=== PATIENT | female | born 1970 | race Asian ===

== ENCOUNTER → 2018-07-31 08:36 | Outpatient (CLI) | payer BC, SELFPAY ==
--- NOTE | 2018-07-31 08:38 | VDLE_ITS ---
Reason For Study: LEG SWELLING RIGHT LEFT CFV is compressible, spontaneous, phasic, GSV is normal. competent and demonstrates normal CFV and SFJ are compressible with vein wall augmentation. thickening, patent, spontaneous, phasic and Procedure competent with augmentation. Exam performed in department. FV is compressible, spontaneous, phasic, A preliminary report was called and/or faxed competent and demonstrates normal to Linda Guy. augmentation. POP V is compressible, spontaneous, phasic, competent and demonstrates normal augmentation. T/P Trunk is compressible. PTV is compressible. LT PerV is compressible. Interpretation Summary The left common femoral vein and the left sapheno-femoral junction demonstrate chronic vein wall thickening, but are otherwise patent and compressible. The remainder of the left lower extremity deep venous system is patent and compressible. Valvular competence appears intact within the proximal deep venous system on the left . The left greater saphenous vein appears patent and compressible segmentally. Ordering Physician: NIKI Hall Referring Physician: NIKI Hall Performed By: Kirsten Rico RVT
== END ==
PROVIDERS: Family Provider Nurse Practitioner Family; PCP Nurse Practitioner Family; Referring Provider Nurse Practitioner Family; Visit Provider Nurse Practitioner Family
DX: M79.89 Other specified soft tissue disorders (principal)
CPT/HCPCS: 93971

== ENCOUNTER 2023-11-18 09:05 | Emergency (ER) | payer BC, SELFPAY ==
[2023-11-18 09:05] VITALS: BP 154/89; PULSE 74; PULSE 78; RESP 16; RESP 21; TEMP 35.6; O2SAT 96; O2SAT 99; BMI 24.2
--- NOTE | 2023-11-18 09:19 | EKG12_ITS ---
Test Reason : CP Blood Pressure : / mmHG Vent. Rate : 070 BPM Atrial Rate : 070 BPM P-R Int : 206 ms QRS Dur : 086 ms QT Int : 442 ms P-R-T Axes : 032 034 032 degrees QTc Int : 477 ms Normal sinus rhythm Normal ECG Confirmed by Darryn Gresham ([id number]), technical writer and editor NAVIN CHAMPAGNE ([id number]) on 11/21/2023 6:31:11 AM Referred By: Confirmed By:Darryn Gresham
--- NOTE | 2023-11-18 09:19 | RAD_ITS ---
STUDY: X-RAY CHEST REASON FOR EXAM: Female, 53 years old. Chest pain and chest tightness. TECHNIQUE: Single AP portable view of the chest. COMPARISON: None. FINDINGS: EKG electrodes are seen. The lungs are clear and expanded. There is no demonstrated pleural abnormality. Normal size heart. Normal mediastinum and bao. Normal visualized pulmonary arteries. Normal visualized aortic arch and descending thoracic aorta. Normal visualized thoracic spine. Normal visualized ribs, clavicles, and shoulders. Surgical clips are seen in the right upper quadrant most likely secondary to prior cholecystectomy. RAD/Chest 1 View (Portable) IMPRESSION: Normal x-ray examination of the chest. Electronically Signed: Devante Edmondson MD at 9:44 EDT ,
--- NOTE | 2023-11-18 09:20 | EX.ED.DYSGE1 ---
HPI History of Present Illness Chief Complaint: Chest Pain Informant: patient Narrative Narrative: 53-year-old female presenting to the emergency room with a chief complaint of chest pressure and palpitations. Patient states she wore a Holter monitor about 3 months ago and was started on metoprolol at night to calm my heart down. She states that yesterday and today she has been intermittently feeling a chest pressure and that her heart might be skipping a beat and that her heart is beating strongly. No syncope diaphoresis nausea vomiting or dyspnea with that. She also takes Nexium for acid reflux. [facility] Medical History (Updated 11/18/23 @ 10:[address] Jesus Morris DO) GERD (gastroesophageal reflux disease) Home Medications ascorbic acid (vitamin C) 500 mg tablet (Vitamin C) 500 mg PO DAILY 06/03/16 [History Last Taken 05/31/16] dexlansoprazole 60 mg capsule,biphase delayed release (Dexilant) 60 mg PO DAILY 06/03/16 [History Last Taken 05/31/16] esomeprazole magnesium 40 mg capsule,delayed release 40 mg PO TID 11/18/23 [History Last Taken Unknown] metoprolol succinate 25 mg tablet,extended release 24 hr 25 mg PO DAILY 11/18/23 [History Last Taken Unknown] Allergy/AdvReac Type Severity Reaction Status Date / Time No Known Allergies Allergy Verified 06/03/16 08:15 Social History Smoking Status: Never smoker ROS ROS ED Constitutional Constitutional ED: Denies chills, fever(s) or weight loss Eyes Eyes: Denies change in vision or diplopia ENT ENT ED: Denies ear pain, rhinorrhea or sore throat Cardiovascular Cardiovascular: Reports chest pain, palpitations and other Details: No syncope ; Denies orthopnea or racing heartbeat Respiratory/Chest Respiratory/Chest: Denies cough, dyspnea or orthopnea Gastrointestinal Gastrointestinal: Denies abdominal pain, diarrhea, nausea or vomiting Genitourinary Genitourinary ED: Denies dysuria, hematuria or urinary frequency Musculoskeletal Musculoskeletal: Denies arthralgias or myalgias Integumentary Denies abscess or rash Neurologic Neurologic: Denies headache(s) or weakness Psychiatric Psychiatric: Denies anxiety, depression, suicidal ideation or suicidal thoughts Endocrine Endocrinology: Denies polydipsia, polyphagia or polyuria Allergic/Immunologic Allergic/Immunologic ED: Denies mouth swelling, tongue swelling or urticaria EXAM Physical Exam Const Vital Signs: 11/18/23 09:05 11/18/23 09:05 11/18/23 10:05 Temperature 96.1 F L Temperature Source Oral Pulse Rate 78 74 59 L Respiratory Rate 16 21 H 19 H Blood Pressure 154/89 H 154/89 H 122/72 H Blood Pressure Mean 110 110 88 Pulse Ox 99 96 98 Oxygen Delivery Method Room Air Room Air Room Air 11/18/23 11:05 Temperature 96.5 F L Temperature Source Pulse Rate 63 Respiratory Rate 16 Blood Pressure 119/96 H Blood Pressure Mean 103 Pulse Ox 100 Oxygen Delivery Method Positive well nourished and well developed General Appearance ED: well developed HEENT Reports normocephalic, head/scalp atraumatic and moist mucous membranes Eyes PERRL and EOMs intact bilaterally Neck no lymphadenopathy, supple and no JVD Resp normal respiratory effort and clear to auscultation bilaterally Cardio regular rate, regular rhythm and no murmurs GI normal to inspection, nondistended, normoactive bowel sounds and non-tender Palpation: soft Back/Spine no CVA tenderness and normal ROM Extremity normal to inspection General Extremety ED: Negative for edema General Extremity: Negative for edema Neuro oriented x3 and CN's II-XII intact bilaterally Sensorium / Orientation: alert Motor Exam: strength 5/5 throughout Psych mental status grossly normal Mood & Affect: Negative for depressed or tearful Skin no rashes or lesions noted and no wounds MDM MDM MDM Narrative Medical decision making narrative: Differential diagnosis includes ACS pulmonary pathology such as pneumonia pneumothorax ex aortic dissection anemia electrolyte abnormalities electrical disturbances/dysrhythmias. Patient is symptomatic meaning she feels this chest sensation that she reports whenever she goes into bigeminy. Were able to capture a twelve-lead with it. The bigeminy is intermittent. Hemoglobin 14.1 with a white count of 8.3 platelet count of 346 potassium 3.8 sodium 137 magnesium 2.2 troponin is 5. Glucose 146 here TSH is elevated at 4.52. My independent interpretation of the chest x-ray is no acute process. Patient is a very active individual and a runner. She states that since taking metoprolol she feels sluggish. I be hesitant to go up on her metoprolol unless truly needed. Her symptoms are present when she is in bigeminy. I am and have her follow-up with her plastic surgery assistant. I would recommend following up with primary care regarding her elevated TSH. Patient is comfortable with this plan History & Record Review Discussion w/independent historian: Patient Lab Data Attestation: I reviewed the patient's lab results. Labs: Laboratory Results - last 24 hr 11/18/23 09:25 WBC 8.3 RBC 6.38 H Hgb 14.1 Hct 45.1 MCV 70.7 L MCH 22.1 L MCHC 31.3 L RDW Std Deviation 37.5 RDW Coeff of [place]iste[place] 16.0 H Plt Count 346 MPV 10.9 Immature Gran % (Auto) 0.400 Neut % (Auto) 49.3 Lymph % (Auto) 40.1 [place] % (Auto) 7.7 Eos % (Auto) 1.8 Baso % (Auto) 0.7 Absolute Neuts (auto) 4.1 Absolute Lymphs (auto) 3.33 Nucleated RBC % 0 Sodium 137 Potassium 3.8 Chloride 105 Carbon Dioxide 31.0 Anion Gap 1 L BUN 12 Creatinine 0.83 Estim Creat Clear Calc 62.00 Est GFR (MDRD) Af Amer 92 Est GFR (MDRD) Non-Af 76 BUN/Creatinine Ratio 14.4 Glucose 146 H Calcium 9.4 Magnesium 2.2 Troponin I High Sens 5 TSH 4.52 H Radiography Diagnostic Testing: Clinical Impression(s) from Imaging Studies Chest X-Ray 11/18/23 09:19 IMPRESSION: Normal x-ray examination of the chest. Electronically Signed: Devante Edmondson MD at 9:44 EDT , EKG Initial EKG: Attestation: I personally reviewed and interpreted this EKG as follows: Comments: Normal sinus rhythm ventricular rate of 70 bpm. Follow-up EKG: Attestation: I personally reviewed and interpreted this EKG as follows: Comments: Sinus rhythm with frequent ventricular complexes in a pattern of bigeminy ventricular rate 71 bpm Discharge Plan Triage Chief Complaint: Chest Pain ED Provider: Jesus Morris Dx/Rx/DC Orders Clinical Impression: Bigeminy, Chest pain, Elevated TSH Instructions: Thyroid-Stimulating Hormone, PVCs Prescriptions: No Action ascorbic acid (vitamin C) [Vitamin C] 500 MG tablet 500 mg PO DAILY dexlansoprazole [Dexilant] 60 MG capsule,biphase delayed releas 60 mg PO DAILY esomeprazole magnesium 40 mg capsule,delayed release(DR/EC) 40 mg PO TID metoprolol succinate 25 mg tablet extended release 24 hr 25 mg PO DAILY Primary Care Provider: Care Physician,No Primary Activity Restrictions/Additional Instructions: I would recommend follow-up with your plastic surgery assistant and primary care. As we discussed your TSH was elevated today. Today's level is 4.52. Disposition Disposition: Home, Self Care Discharge Date/Time: 11/18/23 11:06
[2023-11-18 09:35] LABS: Absolute Lymphocyte Count 3.33 X10^3/uL (0.83-4.51); Absolute Neutrophil Count 4.1 X10^3/uL (2.0-7.7); Basophil# 0.06 X10^3/uL; Basophil% 0.7 % (0-1); Eosinophil# 0.15 X10^3/uL; Eosinophils% 1.8 % (0-5); Hematocrit 45.1 % (37-47); Hemoglobin 14.1 g/dL (12.0-15.0); Lymphocyte # 3.33 X10^3/ul (0.83-4.51); Lymphocyte % 40.1 % (19-41); Mean Corp Hgb Conc 31.3 g/dL (32-36); Mean Corpuscular Hgb 22.1 pg (27.0-32.0); Mean Corpuscular Volume 70.7 fL (81-99); Mean Platelet Vol. 10.9 fl (6.2-12.0); Monocyte# 0.64 X10^3/uL; Monocyte% 7.7 % (0-10); NRBC Flagged by Analyzer 0 % (0-5); Neutrophil # 4.09 X10^3/uL (2.7-7.7); Neutrophil % 49.3 % (47-70); Platelet Count 346 K/mm3 (150-450); RBC Distribution Width SD 37.5 fl (35.1-43.9); Red Blood Count 6.38 M/mm3 (4.2-5.4); White Blood Count 8.3 K/mm3 (4.4-11.0)
[2023-11-18 10:02] LABS: Anion Gap 1 (5-15); BUN 12 mg/dL (7-18); BUN/Creat Ratio 14.4 RATIO (10-20); Calcium,Total 9.4 mg/dL (8.5-10.1); Chloride 105 mmol/L (98-107); Creatinine, Serum 0.83 mg/dL (0.55-1.02); EST Glomerular Filtration Rate 76 mL/min (>60); Est Glom Filt Rate - Afr Amer 92 mL/min (>60); Glucose 146 mg/dL (74-106); Magnesium 2.2 mg/dL (1.6-2.6); Potassium 3.8 mmol/L (3.5-5.1); Sodium Level 137 mmol/L (136-145); Thyroid Stim Hormone (TSH) 4.52 uIU/mL (0.358-3.74); Troponin-I HS 5 pg/mL (3.0-54.0)
[2023-11-18 10:05] VITALS: BP 122/72; PULSE 59; RESP 19; O2SAT 98
[2023-11-18 11:05] VITALS: BP 119/96; PULSE 63; RESP 16; TEMP 35.8; O2SAT 100
== END 2023-11-18 11:06 | disposition home or self-care (01) ==
PROVIDERS: Emergency Provider Emergency Medicine; Visit Provider Emergency Medicine
DX: I49.8 Other specified cardiac arrhythmias (principal); R07.9 Chest pain, unspecified; R94.6 Abnormal results of thyroid function studies; K21.9 Gastro-esophageal reflux disease without esophagitis; Z79.899 Other long term (current) drug therapy
CPT/HCPCS: 71045; 80048; 83735; 84443; 84484; 85025; 93005; 99283